=== PATIENT | female | born 1995 | race Caucasian/White ===

== ENCOUNTER 2016-12-27 19:48 | Emergency (ER) | payer MEDICARE ==
[~2016-12-27] VITALS: Ht 162.6 cm; Wt 54.4 kg
[2016-12-27 19:59] VITALS: BP 120/65
--- NOTE | 2016-12-27 20:41 | PHYS DOC ---
Past Medical History Past Medical History: No Pertinent History Past Surgical History: No Surgical History Alcohol Use: Occasionally Drug Use: Marijuana Adult General Chief Complaint Chief Complaint: VAGINAL PROBLEM HPI HPI Patient is a 21 year old female presents to the emergency department stating that she is having lower pelvic pain and discomfort. She states that she feels as though when she goes to the bathroom that she continues to have to go. She also states that she has some vaginal discharge that is white in color with an odor that smells fishy. Patient states she has not concern for sexual transmitted infections as she has been with the same partner for multiple years. Patient denies any fever, chills or any nausea or vomiting. She denies any further abdominal pain or discomfort. Review of Systems Review of Systems Constitutional: Denies fever or chills [] Eyes: Denies change in visual acuity, redness, or eye pain [] HENT: Denies nasal congestion or sore throat [] Respiratory: Denies cough or shortness of breath [] Cardiovascular: No additional information not addressed in HPI [] GI: Denies abdominal pain, nausea, vomiting, bloody stools or diarrhea [] : dysuria denies hematuria [] Musculoskeletal: Denies back pain or joint pain [] Integument: Denies rash or skin lesions [] Neurologic: Denies headache, focal weakness or sensory changes [] Endocrine: Denies polyuria or polydipsia [] Physical Exam Physical Exam Constitutional: Well developed, well nourished, no acute distress, non-toxic appearance. [] HENT: Normocephalic, atraumatic, bilateral external ears normal, oropharynx moist, no oral exudates, nose normal. [] Eyes: PERRLA, EOMI, conjunctiva normal, no discharge. [] Neck: Normal range of motion, no tenderness, supple, no stridor. [] Cardiovascular: Patient pink warm and dry Lungs & Thorax: No respiratory distress noted Skin: Warm, dry, no erythema, no rash. [] Extremities: No tenderness, no cyanosis, no clubbing, ROM intact, no edema. [] Neurologic: Alert and oriented X 3, normal motor function, normal sensory function, no focal deficits noted. [] Psychologic: Affect normal, judgement normal, mood normal. [] Vaginal exam was completed with REGGIE Bennett at bedside. Patient upon providing the vaginal exam states, "at least don't have to deal with a prostitute's policy." Patient was noted to have a thick vaginal discharge. No adnexal or cervical motion tenderness noted. Current Patient Data Vital Signs Vital Signs Date Time Temp Pulse Resp B/P (MAP) Pulse Ox O2 Delivery O2 Flow Rate FiO2 12/27/16 19:59 97.9 70 20 100 Room Air 97.9 Lab Values Laboratory Tests Test 12/27/16 20:40 12/27/16 20:48 Urine Collection Type Unknown Urine Color Yellow Urine Clarity Clear Urine pH 5.5 Urine Specific [place] 1.025 Urine Protein 100 mg/dL (NEG-TRACE) Urine Glucose (UA) Negative mg/dL (NEG) Urine Ketones (Stick) Negative mg/dL (NEG) Urine Blood Negative (NEG) Urine Nitrite Positive (NEG) Urine Bilirubin Negative (NEG) Urine Urobilinogen Dipstick 0.2 mg/dL (0.2 mg/dL) Urine Leukocyte Esterase Moderate (NEG) Urine RBC 0 /HPF (0-2) Urine WBC Tntc /HPF (0-4) Urine Squamous Epithelial Cells Few /LPF Urine Bacteria Many /HPF (0-FEW) Urine Mucus Marked /LPF POC Urine HCG, Qualitative Hcg negative (Negative) Microbiology 12/27/16 Wet Prep - Final, Complete EKG EKG [] Radiology/Procedures Radiology/Procedures [] Course & Med Decision Making Course & Med Decision Making Pertinent Labs and Imaging studies reviewed. (See chart for details) Wet prep was positive for yeast as well as bacterial vaginosis. Urine was positive for urinary tract infection. Patient will be placed on Macrobid, Flagyl , and Diflucan. Patient will be recommended to drink plenty fluids such as water and cranberry juice. Patient will be encouraged to avoid cranberry juice cocktail, carbonate beverages, citrus fruits, alcohol, carbonated beverages as these are considered irritants to the bladder. Patient was provided with signs and symptoms to return back to the emergency department. All questions and concerns have been answered at the patient's bedside. [] Dragon Disclaimer Dragon Disclaimer This electronic medical record was generated, in whole or in part, using a voice recognition dictation system. Departure Departure Impression: Primary Impression: Tia vaginitis Additional Impressions: UTI (urinary tract infection) Bacterial vaginosis Disposition: HOME, SELF-CARE Condition: STABLE Patient Instructions: Bacterial Vaginosis, [id number], Candidal Vulvovaginitis, [id number], Urinary Tract Infection, [id number] Additional Instructions: Activity as tolerated. Medications as prescribed. Drink plenty of fluids such as water and cranberry juice. Avoid cranberry juice cocktail, carbonated beverages, citrus fruits, caffeine, and alcohol disease are considered irritants to the bladder. Follow-up with primary care physician in the next 7-10 days. Return back to emergency prior signs symptoms of become worse. Scripts Nitrofurantoin Monohyd/M-Cryst (MACROBID 100 MG CAPSULE) 100 Mg Capsule 1 CAP PO BID, #14 CAP Prov: DEANN GOVEA APRN 12/27/16 Metronidazole (FLAGYL) 500 Mg Tablet 1 TAB PO BID, #14 TAB Prov: DEANN GOVEA APRN 12/27/16 Fluconazole (DIFLUCAN) 150 Mg Tablet 1 TAB PO ONCE, #1 TAB 1 Refill Prov: DEANN GOVEA APRN 12/27/16 Problem Qualifiers Additional Impressions: UTI (urinary tract infection) Urinary tract infection type: site unspecified Hematuria presence: without hematuria Qualified Codes: N39.0 - Urinary tract infection, site not specified DEANN GOVEA APRN Dec 27, 2016 20:41
[2016-12-27 20:55] LABS: BILIRUBIN,URINE NEGATIVE (NEG); GLUCOSE,URINE NEGATIVE (NEG); NITRITE,URINE POSITIVE (NEG); PH,URINE 5.5; PROTEIN,URINE 100 mg/dL (NEG-TRACE); UROBILINOGEN,URINE 0.2 mg/dL (0.2 mg/dL)
[2016-12-27 21:00] LABS: RBC,URINE 0 /HPF (0-2); WBC,URINE TNTC /HPF (0-4)
[2016-12-27 21:01] LABS: BACTERIA,URINE MANY /HPF (0-FEW); SQUAMOUS EPITHELIAL CELL,UR FEW /LPF
[2016-12-27] MEDS ORDERED: FLUC150T PO (21:27)
[2016-12-27] MEDS ORDERED: NITR100C62 PO (21:27)
[2016-12-27] MEDS ORDERED: METR500T PO (21:27)
== END 2016-12-27 21:43 | disposition home or self-care (01) ==
LOC: ER 19:48
DX: N39.0 Urinary tract infection, site not specified (principal); B37.3 Candidiasis of vulva and vagina
CPT/HCPCS: 81001; 81025; 87086; 87186; 87491; 87591; 99284; Q0111

== ENCOUNTER 2018-08-04 19:53 | Emergency (ER) | payer MEDICARE, SELFPAY ==
[~2018-08-04] VITALS: Ht 162.6 cm; Wt 54.4 kg
[~2018-08-04 19:53] MED LIST: FLUC150T PO; METR500T PO; NITR100C62 PO; ONDA4TAB10 SL
[2018-08-04 20:16] VITALS: BP 118/64
[2018-08-04] MEDS ORDERED: CLIN300C8 PO (20:21)
[2018-08-04] MEDS ORDERED: DEXAMETHASONE SOD PHOS 4 MG/ML VIAL IM ONE (20:30)
--- NOTE | 2018-08-04 20:30 | PHYS DOC ---
Past Medical History Past Medical History: Asthma Past Surgical History: Other Additional Past Surgical Histo: Bilateral inguinal hernia repair- 2 on R), 1 on L) Alcohol Use: Occasionally Drug Use: Marijuana Adult General Chief Complaint Chief Complaint: SKIN RASH/ABSCESS HPI HPI Patient is a 22 year old female who is presenting with rash after a tattoo one week ago, diffuse rash along the arm was swollen for several days and now there Is Some Spots That Are Popping up throughout the Arm from the Elbow down to the Wrist No Fever Mild Pain Symptoms Are Getting Better with Time They're Improving Slowly but She Is Going to Rehabilitation Tomorrow and She Wanted to Get Checked out Current Medications Current Medications Current Medications Medications (Trade) Dose Ordered Sig/Colette Start Time Stop Time Status Last Admin Dose Admin Dexamethasone Sodium Phosphate (Decadron) 10 mg 1X ONCE 08/04/18 20:30 08/04/18 20:31 DC 08/04/18 20:26 10 MG Allergies Allergies Allergies Coded Allergies Type Severity Reaction Last Updated Verified No Known Drug Allergies 12/27/16 No Physical Exam Physical Exam Constitutional: Well developed, well nourished, no acute distress, non-toxic appearance. [] HENT: Normocephalic, atraumatic, bilateral external ears normal, oropharynx moist, no oral exudates, nose normal. [] Eyes: PERRLA, EOMI, conjunctiva normal, no discharge. [] Neck: Normal range of motion, no tenderness, supple, no stridor. [] Pulmonary: Normal respiratory effort no increased work of breathing no obvious chest wall trauma Abdomen: Bowel sounds normal, soft, no tenderness, no masses, no pulsatile masses. [] Skin: THERE IS a papular rash noted to the upper extremities BOTH SIDES BUT MORE ON THE RIGHT. Back: No tenderness, no CVA tenderness. [] Extremities: MILD tenderness, no cyanosis, no clubbing, ROM intact, no edema. [] Current Patient Data Vital Signs Vital Signs Date Time Temp Pulse Resp B/P (MAP) Pulse Ox O2 Delivery O2 Flow Rate FiO2 08/04/18 20:16 98.7 102 16 118/64 (82) 97 Room Air 98.7 EKG EKG [] Radiology/Procedures Radiology/Procedures [] Course & Med Decision Making Course & Med Decision Making Pertinent Labs and Imaging studies reviewed. (See chart for details) []22 YO WITH RASH ON RIGHT UPPER ARM AFTER TATTOO ALMOST HAS APPEARANCE OF BUG BITES BUT COULD BE INFLAMMATORY REACTION OR POTENTIALLY LESS LIKELY BACTERIAL ETIOLOGY RX: CLINDAMYCIN DECADRON IN ER RETURNP REC DISCUSSED. Bronwyn Disclaimer Bronwyn Disclaimer This electronic medical record was generated, in whole or in part, using a voice recognition dictation system. Departure Departure Impression: Primary Impression: Rash Disposition: HOME, SELF-CARE Condition: STABLE Referrals: NO PCP (PCP) Patient Instructions: Rash Scripts Clindamycin Hcl (CLINDAMYCIN HCL) 300 Mg Capsule 1 CAP PO TID, #21 CAP Prov: CARLOS MARIA MD 08/04/18 CARLOS MARIA MD August 04, 2018 20:30
== END 2018-08-04 20:38 | disposition home or self-care (01) ==
LOC: ER 19:53
DX: L81.8 Other specified disorders of pigmentation (principal); J45.909 Unspecified asthma, uncomplicated
CPT/HCPCS: 96372; 99283; J1100